=== PATIENT | male | born 1965 | race Caucasian/White ===

== ENCOUNTER 2020-01-27 12:34 | Outpatient (REF) | payer OTHER, SELFPAY ==
--- NOTE | 2020-01-27 | US_ITS ---
EXAMINATION: US SCROTUM CLINICAL INFORMATION: Testicular tenderness. COMPARISON: None TECHNIQUE: A sonogram of the scrotum was performed assessing wilson-scale appearance and color Doppler flow. Spectral Doppler analysis of the arterial and venous flow were performed in the testes bilaterally. FINDINGS: RIGHT: Right testicle measures 4.0 x 2.2 x 3.2 cm, volume 14.7 mL. No focal testicular parenchymal lesions are visualized. Spectral Doppler analysis of the arterial and venous flow is normal in the right testis. Right epididymal head is normal in size. There are 2 right epididymal head cyst measuring 4 x 3 x 4 mm and 3 x 2.3 mm. There is a small right hydrocele. No right varicocele is seen. Right epididymal Doppler flow is normal. LEFT: Left testicle measures 4.3 x 2.1 x 3.2 cm, volume 14.9 mL. No focal testicular parenchymal lesions are visualized. Spectral Doppler analysis of the arterial and venous flow is normal in the left testis. Left epididymal head is normal in size. There is a small left epididymal head cyst measuring 4 x 3 x 5 mm. There is a small left hydrocele. There is a small left scrotal calcification measuring 2 mm. No left varicocele is seen. Left epididymal Doppler flow is normal. IMPRESSION: Normal-appearing testicles. Small bilateral epididymal head cysts and bilateral hydroceles.
== END 2020-01-27 12:35 | disposition home or self-care (01) ==
LOC: HO.US 12:34
PROVIDERS: Visit Provider Internal Medicine
DX: N50.819 Testicular pain, unspecified (principal)
CPT/HCPCS: 76870

== ENCOUNTER → 2020-01-28 08:58 | Outpatient (BNVA) | payer OTHER, SELFPAY | PROVIDERS: PCP Internal Medicine; Referring Provider Internal Medicine; Visit Provider Surgery | DX: M67.431 Ganglion, right wrist (principal); M71.331 Other bursal cyst, right wrist; Z79.82 Long term (current) use of aspirin; Z79.899 Other long term (current) drug therapy | CPT/HCPCS: 99203 ==

== ENCOUNTER 2020-02-16 07:21 | Day surgery (SDC) | payer OTHER, SELFPAY ==
[2020-02-12 10:06] VITALS: BMI 26.2
--- NOTE | 2020-02-13 11:44 | P.CONAN_ITS ---
Documented by User: Esmer Rosa 02/13/20 11:47 HPI - Anesthesia Eval Consult details Narrative: 54yo M for Excision of Ganglion Cyst Wrist PMFSH Past Medical History Medical History Depression with anxiety Diabetes mellitus with polyneuropathy Erectile dysfunction GERD (gastroesophageal reflux disease) Pure hypercholesterolemia [place] speaking patient Family History Family History Father Diabetes Hypertension Prostate cancer Mother Stroke Family/Other FH: mental illness Surgical History Surgical History History of appendectomy History of nephrolithiasis Social History Social History Smoking Status: Never smoker Have you been hit, kicked, punched, or otherwise hurt by someone within the past year? If so, by whom?: No Advance Directives Information Provided: No Recently lost weight without trying: No Meds Allergies Allergy/AdvReac Type Severity Reaction Status Date / Time No Known Allergies Allergy Verified 01/26/20 13:29 [No Known Allergies*] Home Medications Medication Instructions Recorded Confirmed Type aspirin 81 mg tablet,delayed 81 mg PO DAILY 01/26/20 02/12/20 History release atorvastatin 40 mg tablet 40 mg PO DAILY 01/26/20 02/12/20 History baclofen 10 mg tablet 10 mg PO BID 01/26/20 02/12/20 History blood sugar diagnostic #10 ea 01/26/20 01/28/20 History bupropion HCl 300 mg 24 hr tablet, 300 mg PO DAILY 01/26/20 02/12/20 History extended release cyanocobalamin (vitamin B-12) 1,000 mcg PO DAILY 01/26/20 02/12/20 History 1,000 mcg tablet divalproex 500 mg tablet,delayed 500 mg PO BID 01/26/20 02/12/20 History release folic acid 1 mg tablet 1 mg PO DAILY 01/26/20 02/12/20 History gabapentin 600 mg tablet 600 mg PO TID 01/26/20 02/12/20 History lancets 33 gauge #100 ea 01/26/20 01/28/20 History levocetirizine 5 mg tablet 5 mg PO QPM 01/26/20 02/12/20 History metformin 500 mg tablet,extended 1,000 mg PO BID 01/26/20 02/12/20 History release 24 hr omega-3 fatty acids 1,000 mg 1,000 mg PO BID 01/26/20 02/12/20 History capsule omeprazole 20 mg capsule,delayed 20 mg PO QAM 01/26/20 02/12/20 History release paroxetine HCl 40 mg tablet 40 mg PO DAILY 01/26/20 02/12/20 History Exam Exam Date and Time: February 13, 2020 1144 Height,Weight and Vital Signs: Height 6 ft Weight 87.543 kg Pertinent Lab Results Pertinent Lab Results: Laboratory Tests 05/30/19 12/24/19 07:45 08:15 WBC 9.2 Hgb 14.3 Hct 42.5 Plt Count 188 Sodium 144 Potassium 4.2 Chloride 107 BUN 15 Creatinine 0.87 Assessment and Plan Assessment Anesthesia Assessment: Chart Reviewed Documented by User: Mike Huber 02/16/20 09:46 PMFSH Past Medical History Medical History Depression with anxiety Diabetes mellitus with polyneuropathy Erectile dysfunction GERD (gastroesophageal reflux disease) Pure hypercholesterolemia [place] speaking patient Family History Family History Father Diabetes Hypertension Prostate cancer Mother Stroke Family/Other FH: mental illness Surgical History Surgical History History of appendectomy History of nephrolithiasis Social History Social History Smoking Status: Never smoker Have you been hit, kicked, punched, or otherwise hurt by someone within the past year? If so, by whom?: No Advance Directives Information Provided: No Recently lost weight without trying: No Meds Allergies Allergy/AdvReac Type Severity Reaction Status Date / Time No Known Allergies Allergy Verified 01/26/20 13:29 [No Known Allergies*] Home Medications Medication Instructions Recorded Confirmed Type aspirin 81 mg tablet,delayed 81 mg PO DAILY 01/26/20 02/12/20 History release atorvastatin 40 mg tablet 40 mg PO DAILY 01/26/20 02/12/20 History baclofen 10 mg tablet 10 mg PO BID 01/26/20 02/12/20 History blood sugar diagnostic #10 ea 01/26/20 01/28/20 History bupropion HCl 300 mg 24 hr tablet, 300 mg PO DAILY 01/26/20 02/12/20 History extended release cyanocobalamin (vitamin B-12) 1,000 mcg PO DAILY 01/26/20 02/12/20 History 1,000 mcg tablet divalproex 500 mg tablet,delayed 500 mg PO BID 01/26/20 02/12/20 History release folic acid 1 mg tablet 1 mg PO DAILY 01/26/20 02/12/20 History gabapentin 600 mg tablet 600 mg PO TID 01/26/20 02/12/20 History lancets 33 gauge #100 ea 01/26/20 01/28/20 History levocetirizine 5 mg tablet 5 mg PO QPM 01/26/20 02/12/20 History metformin 500 mg tablet,extended 1,000 mg PO BID 01/26/20 02/12/20 History release 24 hr omega-3 fatty acids 1,000 mg 1,000 mg PO BID 01/26/20 02/12/20 History capsule omeprazole 20 mg capsule,delayed 20 mg PO QAM 01/26/20 02/12/20 History release paroxetine HCl 40 mg tablet 40 mg PO DAILY 01/26/20 02/12/20 History Exam Airway Mallampati Class: I TM Dist: >3cm Neck ROM: Full Assessment and Plan Assessment Anesthesia Assessment: Anesthesia Plan Discussed and Chart Reviewed Final Anesthetic Review NPO: Yes ASA Class: II Final Preanesthetic Review: No Changes in Pt Med Stat, Meds/Allgs Chart Reviewed, Consent Obtained/Reviewed and Anes Risks/Benef Reviewed Patient Risk: Low Procedure Risk: Low Anesthetic Plan Anesthetic Plan: GA Disposition: Standard PACU
[2020-02-16 07:52] LABS: Glucose, Whole Blood 123 mg/dL (60-115)
[2020-02-16 08:12] VITALS: BMI 25.4
[2020-02-16 08:16] VITALS: BP 110/73; PULSE 84; RESP 18; TEMP 36.1; O2SAT 99
[2020-02-16] MEDS: Lactated Ringers 1,000 ML 100 ML IVCONT (08:22)
[2020-02-16] MEDS: ceFAZolin Sodium/Dextrose,Iso 2 GM/50 ML PIGGYBACK IV (08:23)
--- NOTE | 2020-02-16 09:33 | MHC.SHP ---
Pre-Procedural Eval Section A The patient is an INPATIENT: No Changes since office visit: No Cold of Flu in the past 2 weeks, No New Medical Problems and No Changes in Medication The History & Physical has been completed within 30 days and I have reviewed it.: Yes Section B Chief Complaint: Ganglion,Right Wrist Allergies: Allergies Allergy/AdvReac Type Severity Reaction Status Date / Time No Known Allergies Allergy Verified 01/26/20 13:29 [No Known Allergies*] Plan Diagnosis/Plan: Unchanged Patient has been examined and remains a candidate for the planned procedure
--- NOTE | 2020-02-16 11:04 | P.OP_ITS ---
Operative Note Operative Note Narrative: Preoperative diagnosis: Ganglion right wrist Postoperative diagnosis: Same Procedure: Excision of ganglion right wrist Surgeon: Jaron Henao MD Elevator Installer: None Anesthesia: General LMA Indications for procedure: Patient is a 54-year-old male presenting with an enlarging lump located on the dorsum of the right wrist over the radial surface which is increasing in size and causing discomfort. Patient has requested excision. Operative findings: Patient was found to have a ganglion cyst over the dorsal surface measured approximately 2 cm in diameter Specimen: Ganglion cyst right wrist Estimated blood loss 20 mL Complications: None Procedure details: Patient was brought to the OR placed in the supine position. After administering general anesthesia the patient's right arm wrist and hand was prepped with ChloraPrep and draped in a sterile fashion. A surgical time- out was called and the consent confirmed. Patient received preoperative antibiotics and Venodyne boots were in place. Local anesthesia consisting of 0.75% Sensorcaine with epinephrine was infiltrated in the longitudinal fashion over the right wrist ganglion cyst. Incision was then made with a 15 blade and carried out through subcutaneous tissue and up to the cyst wall. A combination of sharp and blunt dissection was then used to dissect the cyst down to the base. The cyst was then ligated at its base with a 3-0 silk tie. The cyst was excised and sent to pathology for further examination. Hemostasis was assured using electrocautery and light pressure. The deep fascia was closed using interrupted 3-0 Polysorb sutures. Dermis was reapproximated using interrupted 3-0 Polysorb sutures. Skin was then closed using interrupted 3-0 nylon sutures. A dressing of fluff gauze followed by a 3 in Camila and 3 in Raffy bandage was then applied. The patient tolerated the procedure well. Sponge, instrument, needle counts reported as correct. The patient was transferred to PACU in stable condition.
[2020-02-16 11:05] VITALS: BP 110/76; PULSE 74; RESP 16; TEMP 36.2; O2SAT 98
[2020-02-16 11:10] VITALS: BP 89/64; PULSE 73; RESP 16; O2SAT 98
[2020-02-16 11:15] VITALS: BP 101/64; PULSE 72; RESP 16; O2SAT 98
[2020-02-16] MEDS: Acetaminophen 325 MG TABLET 650 MG PO (11:15)
[2020-02-16 11:20] VITALS: BP 115/79; PULSE 75; RESP 18; O2SAT 99
[2020-02-16] MEDS: Ketorolac Tromethamine 15 MG/ML VIAL IVPUSH (11:21)
[2020-02-16 11:35] VITALS: BP 117/75; PULSE 75; RESP 18; O2SAT 97
--- NOTE | 2020-02-16 11:52 | HO.POSTANES ---
Post Anesthesia Evaluation Post Anesthesia Evaluation Vital Signs: Vital Signs Temp Pulse Resp BP Pulse Ox 02/16/20 11:35 97.2 F 75 18 117/75 97 02/16/20 11:20 75 18 115/79 99 02/16/20 11:15 72 16 101/64 98 02/16/20 11:10 73 16 89/64 L 98 02/16/20 11:05 97.2 F 74 16 110/76 98 02/16/20 08:16 97 F 84 18 110/73 99 Anesthesia: General LMA Mental Status: Awake Pain Control: Satisfactory Nausea/Vomiting: None Hydration: Adequate Anesthesia-Related Issues: No Anes. Related Issues
== END 2020-02-16 12:15 | disposition home or self-care (01) ==
PROVIDERS: PCP Internal Medicine; Visit Provider Surgery
PROC: (CPT 25111; principal; 2020-02-16 09:10)
DX: M67.431 Ganglion, right wrist (principal); E11.42 Type 2 diabetes mellitus with diabetic polyneuropathy; K21.9 Gastro-esophageal reflux disease without esophagitis; E78.00 Pure hypercholesterolemia, unspecified; Z79.899 Other long term (current) drug therapy; Z79.84 Long term (current) use of oral hypoglycemic drugs; Z79.82 Long term (current) use of aspirin
CPT/HCPCS: 25111; 82947; 88304; J0690; J1885; J2250; J3010

== ENCOUNTER → 2020-02-17 09:55 | Outpatient (BNVA) | payer OTHER, SELFPAY | PROVIDERS: PCP Internal Medicine; Visit Provider Surgery | DX: Z48.01 Encounter for change or removal of surgical wound dressing (principal) | CPT/HCPCS: 99212 ==

== ENCOUNTER → 2020-02-25 08:19 | Outpatient (BNVA) | payer OTHER, SELFPAY | PROVIDERS: PCP Internal Medicine; Referring Provider Internal Medicine; Visit Provider Surgery | DX: Z09 Encounter for follow-up examination after completed treatment for conditions other than malignant neoplasm (principal); Z87.39 Personal history of other diseases of the musculoskeletal system and connective tissue | CPT/HCPCS: 99212 ==

== ENCOUNTER → 2020-03-31 11:00 | Outpatient (BNVA) | payer OTHER, SELFPAY | PROVIDERS: PCP Internal Medicine; Referring Provider Internal Medicine; Visit Provider Urology | DX: N52.9 Male erectile dysfunction, unspecified (principal); E11.42 Type 2 diabetes mellitus with diabetic polyneuropathy; Z79.84 Long term (current) use of oral hypoglycemic drugs | CPT/HCPCS: 99212; Q3014 ==